=== PATIENT | male | born 1975 | race Caucasian/White ===

== ENCOUNTER 2018-10-05 01:00 | Emergency (ER) | payer OTHER ==
[2018-10-05 01:11] VITALS: BP 115/79; PULSE 78; TEMP 97.9; BMI 27.2
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
--- NOTE | 2018-10-05 11:12 | EKG ---
Test Reason : Blood Pressure : / mmHG Vent. Rate : 071 BPM Atrial Rate : 071 BPM P-R Int : 174 ms QRS Dur : 094 ms QT Int : 386 ms P-R-T Axes : 068 016 026 degrees QTc Int : 419 ms NORMAL SINUS RHYTHM NORMAL ECG NO PREVIOUS ECGS AVAILABLE Confirmed by MICHEL PATTERSON MD ([id number]) on 10/05/2018 11:12:22 AM Referred By: NISHA GRAY Confirmed By:MICHEL PATTERSON MD
== END 2018-10-05 01:40 | disposition home or self-care (01) ==
LOC: FER 01:00
DX: R07.89 Other chest pain (principal)
CPT/HCPCS: 71046-TC-FY; 93005; 99283-25

== ENCOUNTER 2019-01-14 00:52 | Emergency (ER) | payer OTHER ==
[2019-01-14 00:58] VITALS: BP 121/77; PULSE 82; TEMP 98.1; BMI 25.1
[2019-01-14] MEDS ORDERED: DIPHTH,PERTUSS(ACELL),TET 0.5 ML DISP.SYRIN IM ONE ×2 (01:23→01:27)
[2019-01-14] MEDS ORDERED: AMOX TR/POT CLAV 875MG/125MG TABLETS (FP) PO ONE (01:24)
--- NOTE | 2019-01-14 01:24 | PDOC ---
History of Present Illness - General Chief Complaint: Bite Stated Complaint: IGUANA BITE Time Seen by Provider: 01/14/19 01:17 History Source: Patient Exam Limitations: No Limitations - History of Present Illness Initial Comments: 01/14/19 01:19 This is a 43-year-old male who comes in complaining of a bite on his right index finger from an [place]guana. Patient denies any other injuries. His last tetanus is unknown. Patient clean the wound with peroxide and alcohol Allergies: None Past Medical History: none Social history: Lives with family. No smoking. No alcohol. No illicit drugs. Surgical history: None General: No fevers or chills, no weakness, no weight loss HEENT: No change in vision. No sore throat,. No ear pain CardioVascular: no chest discomfort. No shortness of breath Respiratory:No cough, or wheezing. Gastrointestinal: no nausea, vomiting, diarrhea or constipation, No rectal bleeding Genitourinary: No dysuria, hematuria, or frequency Musculoskeletal: Bite to right index finger Neurologic: No headache, vertigo, dizziness or loss of consciousness Psychiatric: nor depression Skin: No rashes or easy bruising Endocrine: no increased thirst or abnormal weight change Allergic: no skin or latex allergy All other systems reviewed and normal GENERAL: The patient is awake, alert, and fully oriented, in no acute distress. HEAD: Normal with no signs of trauma. EYES: Pupils equal, round and reactive to light, extraocular movements intact, sclera anicteric, conjunctiva clear. EXTREMITIES:atraumatic, there is a superficial laceration approximately 1 cm on the medial aspect of the index finger, there is no active bleeding neurovascular distal is intact. NEUROLOGICAL: Normal speech, normal gait. PSYCH: Normal mood, normal affect. SKIN: Warm, Dry, normal turgor, no rashes or lesions noted. Procedure note laceration repair with Dermabond Patient cleaned with peroxide and closed with Dermabond Assessment and plan: This is a 43-year-old male with a rate on his right index finger secondary to an iguana. Bite was closed with Dermabond and patient started on Augmentin and patient also given tetanus shot. Past History - Past Medical History Allergies/Adverse Reactions: Allergies Allergy/AdvReac Type Severity Reaction Status Date / Time No Known Allergies Allergy Unverified 10/05/18 01:09 Home Medications: Ambulatory Orders NK [No Known Home Medication] 10/05/18 COPD: No Diabetes: No HTN: No - Suicide/Smoking/Psychosocial Hx Smoking History: Current some day smoker Have you smoked in the past 12 months: No Number of Cigarettes Smoked Daily: 0 Information on smoking cessation initiated: Yes Hx Alcohol Use: Yes Drug/Substance Use Hx: Yes Substance Use Type: None *Physical Exam - Vital Signs Last Vital Signs Temp Pulse Resp BP Pulse Ox 98.1 F 82 16 121/77 100 01/14/19 00:54 01/14/19 00:54 01/14/19 00:54 01/14/19 00:54 01/14/19 00:54 Moderate Sedation - Procedure Monitoring Vital Signs: Procedure Monitoring Vital Signs Temperature 98.1 F 01/14/19 00:54 Pulse Rate 82 01/14/19 00:54 Respiratory Rate 16 01/14/19 00:54 Blood Pressure 121/77 01/14/19 00:54 O2 Sat by Pulse Oximetry (%) 100 01/14/19 00:54 *DC/Admit/Observation/Transfer Diagnosis at time of Disposition: Finger wound, simple, open Qualifiers: Encounter type: initial encounter Qualified Code(s): S61.209A - Unspecified open wound of unspecified finger without damage to nail, initial encounter - Discharge Dispostion Disposition: HOME Condition at time of disposition: Stable Decision to Admit order: No - Referrals - Patient Instructions Additional Instructions: U can cover the wound with a Band-Aid to help protect it. Do not use any petroleum based product on the glue as it will cause him to come off. Return to the emergency department immediately with ANY new, persistent or worsening symptoms. Continue any medications as previously prescribed by your physician. You should follow up with your primary doctor as soon as possible regarding today's emergency department visit. . Please make sure your doctor reviews the results of your emergency evaluation. Thank you for coming to the Emergency Department today for your care. It was a pleasure to see you today. Please note that your evaluation is INCOMPLETE until you follow-up with your doctor. - Post Discharge Activity
[2019-01-14] MEDS ORDERED: AMOX TR/POT CLAV 875MG/125MG TABLETS (FP) ONE (01:27)
== END 2019-01-14 01:37 | disposition home or self-care (01) ==
LOC: FER 00:52
PROC: 3E0234Z Introduction of Serum, Toxoid and Vaccine into Muscle, Percutaneous Approach (ICD-10-PCS; principal; 2019-01-14)
DX: S61.250A Open bite of right index finger without damage to nail, initial encounter (principal); W59.81XA Bitten by other nonvenomous reptiles, initial encounter; Y93.89 Activity, other specified; Y92.89 Other specified places as the place of occurrence of the external cause; F17.210 Nicotine dependence, cigarettes, uncomplicated
CPT/HCPCS: 90715; 99281-25

== ENCOUNTER 2023-05-03 04:24 | Day surgery (SDC) | payer OTHER ==
[2023-04-29 11:39] VITALS: BMI 28.4
[2023-05-03 12:41] VITALS: TEMP 97.5
[2023-05-03 13:10] VITALS: RESP 16
[2023-05-03 13:12] VITALS: BP 121/70; PULSE 61
== END 2023-05-03 13:20 | disposition home or self-care (01) ==
LOC: JASU-ENDO 04:24
PROVIDERS: ATTEND Student in an Organized Health Care Education/Training Program
PROC: 0DBP8ZX Excision of Rectum, Via Natural or Artificial Opening Endoscopic, Diagnostic (ICD-10-PCS; 2023-05-03)
PROC: 0DBN8ZX Excision of Sigmoid Colon, Via Natural or Artificial Opening Endoscopic, Diagnostic (ICD-10-PCS; principal; 2023-05-03 12:00)
DX: Z12.11 Encounter for screening for malignant neoplasm of colon (principal); D12.5 Benign neoplasm of sigmoid colon; D12.8 Benign neoplasm of rectum
CPT/HCPCS: 88305-TC